=== PATIENT | female | born 1950 | race Caucasian/White ===

== ENCOUNTER → 2021-04-15 | Outpatient (CLI) | payer MEDICARE, BC ==
[~2021-04-15] MED LIST: CELEXA20 MG PO; COREG6.25 MG PO; CRESTOR20 MG PO; HAIR SKIN NAIL1 EACH PO; HYDROCODON-ACE1 EAC4 PO; NORVASC5 MG PO; OMEPRAZOLE40 MG PO; TELMISARTAN-HC1 EAC2 PO; [UNRECOGNIZED DRUG - OTHER] PO
[2021-04-15 13:46] LABS: BUN/CREATININE RATIO 21 (0-10)
== END ==
LOC: OPSV2 11:00
PROVIDERS: Orthopaedic Surgery
DX: Z01.818 Encounter for other preprocedural examination (principal); M65.331 Trigger finger, right middle finger; R94.31 Abnormal electrocardiogram [ECG] [EKG]
CPT/HCPCS: 80048; 93005

== ENCOUNTER → 2021-04-16 | Day surgery (SDC) | payer MEDICARE, BC | END | disposition home or self-care (01) | LOC: OR 08:15 | DX: M65.331 Trigger finger, right middle finger (principal); M17.12 Unilateral primary osteoarthritis, left knee; I10 Essential (primary) hypertension; E78.5 Hyperlipidemia, unspecified; K21.9 Gastro-esophageal reflux disease without esophagitis; K58.9 Irritable bowel syndrome, unspecified; F32.9 Major depressive disorder, single episode, unspecified; Z85.828 Personal history of other malignant neoplasm of skin; Z79.899 Other long term (current) drug therapy | CPT/HCPCS: J1100; J1885; J2001; J2405; J2704; J7120 ==